=== PATIENT | female | born 1965 | race Hispanic/Latino ===

== ENCOUNTER 2022-08-02 20:45 | Inpatient (IN) | payer BC, OTHER ==
[~2022-08-02] VITALS: Ht 165.1 cm; Wt 89.4 kg
[2022-08-02] MEDS ORDERED: ONDANSETRON HCL INJ 2MG/ML 2ML 2 MG/ML VIAL IV STA ×2 (21:25→23:28)
[2022-08-02] MEDS ORDERED: METOPROLOL TARTRATE INJ 1 MG/ML VIAL IV ONE ×2 (21:30→23:15)
[2022-08-02 21:55] LABS: BASOPHILS % 0.3 % (0.0-1.0); CLARITY,URINE CLOUDY (CLEAR); COLOR,URINE YELLOW (YELLOW); EOSINOPHILS # (AUTO) 0.1 (0.0-0.4); EOSINOPHILS % 0.9 % (0.0-6.0); HEMATOCRIT 38.6 % (34.2-44.1); HEMOGLOBIN 12.3 g/dL (12.0-16.0); KETONES,URINE TRACE (NEGATIVE); LEUKOCYTE ESTERASE ,URINE SMALL (NEGATIVE); LYMPHOCYTES # (AUTO) 4.4 (1.0-3.2); LYMPHOCYTES % 31.8 % (18.0-39.1); MEAN CORPUSCULAR HEMOGLOBIN 25.9 pg (28-32); MEAN CORPUSCULAR HGB CONC 31.9 g/dL (31-35); MEAN CORPUSCULAR VOLUME 81.4 fL (81-99); MONOCYTES # (AUTO) 1.6 (0.2-0.8); MONOCYTES % 11.6 % (4.4-11.3); NEUTROPHILS # (AUTO) 7.6 (2.1-6.9); NITRITE,URINE NEGATIVE (NEGATIVE); PLATELET COUNT 340 x10e3/uL (140-360); PROTEIN,URINE DIPSTICK >=300 (NEGATIVE); RED BLOOD COUNT 4.74 x10e6/uL (3.6-5.1); RED CELL DISTRIBUTION WIDTH 13.7 % (11.7-14.4); URINE UROBILINOGEN 1 mg/dL (0.2 - 1)
[2022-08-02 21:58] LABS: AMPHETAMINES SCREEN,URINE NEGATIVE (NEGATIVE); BENZODIAZEPINES SCREEN,URINE NEGATIVE (NEGATIVE); PHENCYCLIDINE SCREEN,URINE NEGATIVE (NEGATIVE)
[2022-08-02 22:04] LABS: ALBUMIN 3.4 g/dL (3.5-5.0); ALBUMIN/GLOBULIN RATIO 0.8 (0.8-2.0); ANION GAP 21.1 mmol/L (8-16); CREATININE, SERUM 0.86 mg/dL (0.57-1.11); POTASSIUM 4.1 mmol/L (3.5-5.1)
[2022-08-02 22:06] LABS: BACTERIA,URINE MODERATE /HPF; EPITHELIAL CELLS,URINE FEW /LPF; WBC,URINE (MAN) 21-50 /HPF (0-5)
[2022-08-02 22:10] LABS: CREATINE KINASE MB 2.6 ng/mL (0-5.0)
[2022-08-02 22:26] LABS: FREE THYROXINE INDEX 8.5944035 (1.4-3.8)
[2022-08-02] MEDS ORDERED: SODIUM CHLORIDE 0.9% 1000ML 1,000 ML IV ONE (22:30)
[2022-08-02] MEDS ORDERED: Morphine 4mg INJECTION 4 MG/ML INJ IV ONE (23:30)
[2022-08-02] MEDS ORDERED: METOPROLOL TARTRATE INJ 1 MG/ML VIAL ONE (23:38)
[2022-08-03] VITALS (8 sets, daily range): BP systolic 101–128; BP diastolic 31–79
[2022-08-03] MEDS ORDERED: ACETAMINOPHEN 325 MG TAB PO PRN (00:15)
[2022-08-03] MEDS ORDERED: SODIUM CHLORIDE FLUSH 10 ML SYR INJ PRN (00:15)
[2022-08-03] MEDS ORDERED: DEXTROSE 50% SYRINGE 50 ML IV PRN (00:15)
[2022-08-03] MEDS ORDERED: METOPROLOL TARTRATE 50 MG TAB PO ONE (00:30)
[2022-08-03] MEDS ORDERED: METOPROLOL TARTRATE 50 MG TAB ONE (00:42)
[2022-08-03] MEDS ORDERED: ONDANSETRON HCL INJ 2MG/ML 2ML 2 MG/ML VIAL IV PRN (01:00)
[2022-08-03] MEDS ORDERED: MELATONIN 3 MG TAB PO PRN (01:15)
[2022-08-03] MEDS ORDERED: GUAIFENESIN/DEXTROMETHORPHAN LIQD 5 ML UDC PO PRN (01:15)
[2022-08-03] MEDS ORDERED: DOCUSATE SODIUM 100 MG CAP PO PRN (01:15)
[2022-08-03] MEDS ORDERED: MAGNESIUM/ALUMINUM/SIMETHICONE 30 ML UDC PO PRN (01:15)
[2022-08-03] MEDS ORDERED: Morphine 4mg INJECTION 4 MG/ML INJ IV PRN (02:30)
[2022-08-03] MEDS ORDERED: OXYBUTYNIN CHLO10 MG PO (04:39)
[2022-08-03] MEDS ORDERED: TRULICITY1.5 MG/0.5 (05:12)
[2022-08-03] MEDS ORDERED: AMBIEN10 MG PO (05:12)
[2022-08-03] MEDS ORDERED: CELECOXIB100 MG PO (05:12)
[2022-08-03] MEDS ORDERED: SPIRONOLACTONE25 MG PO (05:12)
[2022-08-03] MEDS ORDERED: METOPROLOL SUC100 MG PO (05:12)
[2022-08-03] MEDS ORDERED: HYDROXYCHLOROQ200 MG PO (05:12)
[2022-08-03] MEDS ORDERED: FLUTICASONE PRO16 GM HHN (05:12)
[2022-08-03] MEDS ORDERED: HYDROCODONE-IB1 EAC1 PO (05:12)
[2022-08-03] MEDS ORDERED: ROSUVASTATIN CA20 MG PO (05:12)
[2022-08-03] MEDS ORDERED: PANTOPRAZOLE SO40 MG PO (05:12)
[2022-08-03] MEDS ORDERED: CYCLOBENZAPRINE10 MG PO (05:12)
[2022-08-03] MEDS ORDERED: BENLYSTA400 MG SUBD (05:15)
[2022-08-03] MEDS: INSULIN REGULAR, HUMAN 100 UNIT/1 ML SQ SCH ×2 (07:30→11:30)
[2022-08-03] MEDS: METOPROLOL TARTRATE 25 MG TAB PO SCH ×2 (09:00→23:21)
[2022-08-03] MEDS: LACTATED RINGER'S 1,000 ML INJ SCH ×3 (09:00→23:21)
[2022-08-03 09:10] LABS: MAGNESIUM 1.2 MG/DL (1.3-2.1); PHOSPHORUS 4.1 MG/DL (2.3-4.7)
[2022-08-03 10:24] LABS: CREATINE KINASE MB 1.9 ng/mL (0-5.0)
[2022-08-03 11:48] LABS: ALBUMIN 2.9 g/dL (3.5-5.0); ALBUMIN/GLOBULIN RATIO 0.9 (0.8-2.0); CALCIUM 9.9 mg/dL (8.4-10.2); CREATININE, SERUM 0.77 mg/dL (0.57-1.11)
[2022-08-03] MEDS: HYDROCODONE/APAP 7.5MG-325MG 1 EA TAB PO PRN (13:32)
[2022-08-03] MEDS: INSULIN LISPRO 100 UNIT/1 ML 3ML VIAL SQ SCH ×2 (16:30→21:00)
[2022-08-03 16:38] LABS: CREATINE KINASE MB 1.8 ng/mL (0-5.0)
[2022-08-03] MEDS: CRESTOR 10MG PO SCH (23:19)
[2022-08-03] MEDS: ZOLPIDEM TARTRATE 10 MG TAB PO PRN (23:28)
[2022-08-04] VITALS (8 sets, daily range): BP systolic 102–139; BP diastolic 53–63
[2022-08-04 07:29] LABS: BASOPHILS % 0.5 % (0.0-1.0); EOSINOPHILS # (AUTO) 0.2 (0.0-0.4); EOSINOPHILS % 3.4 % (0.0-6.0); HEMATOCRIT 32.3 % (34.2-44.1); HEMOGLOBIN 9.4 g/dL (12.0-16.0); LYMPHOCYTES # (AUTO) 2.3 (1.0-3.2); MEAN CORPUSCULAR HEMOGLOBIN 26.4 pg (28-32); MEAN CORPUSCULAR HGB CONC 29.1 g/dL (31-35); MEAN CORPUSCULAR VOLUME 90.7 fL (81-99); MONOCYTES # (AUTO) 0.9 (0.2-0.8); MONOCYTES % 15.6 % (4.4-11.3); NEUTROPHILS # (AUTO) 2.3 (2.1-6.9); NEUTROPHILS % 40.1 % (38.7-80.0); PLATELET COUNT 196 x10e3/uL (140-360); RED BLOOD COUNT 3.56 x10e6/uL (3.6-5.1)
[2022-08-04] MEDS: INSULIN LISPRO 100 UNIT/1 ML 3ML VIAL SQ SCH ×4 (07:30→20:49)
[2022-08-04 08:09] LABS: ALBUMIN 2.5 g/dL (3.5-5.0); ALBUMIN/GLOBULIN RATIO 0.8 (0.8-2.0); ANION GAP 11.9 mmol/L (8-16); CALCIUM 9.8 mg/dL (8.4-10.2); CHOL/HDL RATIO 2.1 (3.0-3.6); CREATININE, SERUM 0.69 mg/dL (0.57-1.11); POTASSIUM 3.9 mmol/L (3.5-5.1)
[2022-08-04] MEDS ORDERED: METOPROLOL SUCCINATE 50 MG TAB XL PO SCH (09:00)
[2022-08-04] MEDS: CYCLOBENZAPRINE HCL 10 MG TAB PO SCH (09:41)
[2022-08-04] MEDS: METOPROLOL TARTRATE 25 MG TAB PO SCH ×2 (09:42→20:39)
[2022-08-04] MEDS: HYDROXYCHLOROQUINE SULFATE 200 MG TAB PO SCH (09:42)
[2022-08-04] MEDS: PANTOPRAZOLE SOD 40 MG TABEC PO SCH (09:42)
[2022-08-04] MEDS: LACTATED RINGER'S 1,000 ML INJ SCH ×2 (09:44→20:41)
[2022-08-04] MEDS: HYDROCODONE/APAP 7.5MG-325MG 1 EA TAB PO PRN ×2 (09:57→20:40)
[2022-08-04] MEDS: CRESTOR 10MG PO SCH (20:39)
[2022-08-04] MEDS: ZOLPIDEM TARTRATE 10 MG TAB PO PRN (20:39)
[2022-08-04] MEDS: METHIMAZOLE 5 MG TAB PO SCH (21:06)
[2022-08-05] VITALS (8 sets, daily range): BP systolic 117–138; BP diastolic 43–60
[2022-08-05] MEDS: HYDROCODONE/APAP 7.5MG-325MG 1 EA TAB PO PRN ×3 (05:18→21:26)
[2022-08-05] MEDS: LACTATED RINGER'S 1,000 ML INJ SCH ×3 (06:08→23:15)
[2022-08-05] MEDS: METHIMAZOLE 5 MG TAB PO SCH ×3 (06:08→21:02)
[2022-08-05] MEDS: INSULIN LISPRO 100 UNIT/1 ML 3ML VIAL SQ SCH ×4 (07:30→21:00)
[2022-08-05] MEDS: PANTOPRAZOLE SOD 40 MG TABEC PO SCH (08:21)
[2022-08-05] MEDS: CYCLOBENZAPRINE HCL 10 MG TAB PO SCH ×2 (08:22→21:04)
[2022-08-05] MEDS: HYDROXYCHLOROQUINE SULFATE 200 MG TAB PO SCH (08:22)
[2022-08-05] MEDS: METOPROLOL TARTRATE 25 MG TAB PO SCH ×2 (08:23→21:25)
[2022-08-05] MEDS ORDERED: ONDANSETRON HCL 4 MG ORAL DISINTEGRATING TAB PO PRN (14:00)
[2022-08-05] MEDS: CRESTOR 10MG PO SCH (21:02)
[2022-08-05] MEDS: ZOLPIDEM TARTRATE 10 MG TAB PO PRN (21:26)
[2022-08-06] VITALS (8 sets, daily range): BP systolic 100–155; BP diastolic 48–92
[2022-08-06] MEDS: METHIMAZOLE 5 MG TAB PO SCH ×3 (06:03→21:23)
[2022-08-06] MEDS: INSULIN LISPRO 100 UNIT/1 ML 3ML VIAL SQ SCH ×4 (07:30→21:00)
[2022-08-06] MEDS: HYDROXYCHLOROQUINE SULFATE 200 MG TAB PO SCH (08:24)
[2022-08-06] MEDS: PANTOPRAZOLE SOD 40 MG TABEC PO SCH (08:24)
[2022-08-06] MEDS: METOPROLOL TARTRATE 25 MG TAB PO SCH ×2 (08:26→21:30)
[2022-08-06 09:07] LABS: BASOPHILS % 0.2 % (0.0-1.0); EOSINOPHILS # (AUTO) 0.3 (0.0-0.4); EOSINOPHILS % 4.5 % (0.0-6.0); HEMOGLOBIN 9.4 g/dL (12.0-16.0); LYMPHOCYTES # (AUTO) 2.9 (1.0-3.2); LYMPHOCYTES % 48.3 % (18.0-39.1); MEAN CORPUSCULAR HEMOGLOBIN 25.8 pg (28-32); MEAN CORPUSCULAR HGB CONC 31.3 g/dL (31-35); MEAN CORPUSCULAR VOLUME 82.2 fL (81-99); MONOCYTES # (AUTO) 0.9 (0.2-0.8); MONOCYTES % 14.4 % (4.4-11.3); NEUTROPHILS # (AUTO) 1.9 (2.1-6.9); NEUTROPHILS % 32.4 % (38.7-80.0); PLATELET COUNT 185 x10e3/uL (140-360); RED BLOOD COUNT 3.65 x10e6/uL (3.6-5.1); RED CELL DISTRIBUTION WIDTH 13.2 % (11.7-14.4)
[2022-08-06] MEDS: HYDROCODONE/APAP 7.5MG-325MG 1 EA TAB PO PRN ×2 (09:11→18:40)
[2022-08-06 09:23] LABS: ANION GAP 11.2 mmol/L (8-16); CALCIUM 9.2 mg/dL (8.4-10.2); CREATININE, SERUM 0.65 mg/dL (0.57-1.11); POTASSIUM 3.2 mmol/L (3.5-5.1)
[2022-08-06] MEDS: LACTATED RINGER'S 1,000 ML INJ SCH ×2 (14:33→19:15)
[2022-08-06 15:00] LABS: MAGNESIUM 1.2 MG/DL (1.3-2.1); PHOSPHORUS 3.8 MG/DL (2.3-4.7)
[2022-08-06] MEDS ORDERED: MAGNESIUM SULFATE 2GM/50ML 50 ML IV ONE ×2 (16:30→18:30)
[2022-08-06] MEDS ORDERED: POTASSIUM CHLORIDE 20 MEQ TAB CR PO ONE (21:00)
[2022-08-06] MEDS: ZOLPIDEM TARTRATE 10 MG TAB PO PRN (21:23)
[2022-08-06] MEDS: CYCLOBENZAPRINE HCL 10 MG TAB PO SCH (21:24)
[2022-08-06] MEDS: CRESTOR 10MG PO SCH (21:24)
[2022-08-07] VITALS: BP 149/80
[2022-08-07 04:00] VITALS: BP 115/57
[2022-08-07] MEDS: METHIMAZOLE 5 MG TAB PO SCH (05:30)
[2022-08-07] MEDS: LACTATED RINGER'S 1,000 ML INJ SCH (05:30)
[2022-08-07 06:39] LABS: ANION GAP 10.9 mmol/L (8-16); CALCIUM 8.8 mg/dL (8.4-10.2); CREATININE, SERUM 0.65 mg/dL (0.57-1.11); MAGNESIUM 1.8 MG/DL (1.3-2.1); POTASSIUM 3.9 mmol/L (3.5-5.1)
[2022-08-07 06:40] LABS: BASOPHILS % 0.3 % (0.0-1.0); EOSINOPHILS # (AUTO) 0.3 (0.0-0.4); EOSINOPHILS % 4.8 % (0.0-6.0); HEMATOCRIT 28.7 % (34.2-44.1); HEMOGLOBIN 9.5 g/dL (12.0-16.0); LYMPHOCYTES # (AUTO) 2.4 (1.0-3.2); LYMPHOCYTES % 36.5 % (18.0-39.1); MEAN CORPUSCULAR HGB CONC 33.1 g/dL (31-35); MEAN CORPUSCULAR VOLUME 84.7 fL (81-99); MONOCYTES # (AUTO) 0.7 (0.2-0.8); MONOCYTES % 9.8 % (4.4-11.3); NEUTROPHILS # (AUTO) 3.2 (2.1-6.9); NEUTROPHILS % 48.3 % (38.7-80.0); PLATELET COUNT 182 x10e3/uL (140-360); RED BLOOD COUNT 3.39 x10e6/uL (3.6-5.1); RED CELL DISTRIBUTION WIDTH 13.7 % (11.7-14.4); RETICULOCYTE % 0.9 % (0.8-2.2)
[2022-08-07 06:43] LABS: FERRITIN 143.12 ng/mL (4.63-204.00)
[2022-08-07] MEDS ORDERED: ONDANSETRON ODT4 MG PO (07:14)
[2022-08-07] MEDS ORDERED: LOPRESSOR25 MG PO (07:14)
[2022-08-07] MEDS ORDERED: METHIMAZOLE5 MG PO (07:14)
[2022-08-07] MEDS: INSULIN LISPRO 100 UNIT/1 ML 3ML VIAL SQ SCH (07:30)
[2022-08-07] MEDS ORDERED: IRON325 M1 PO (08:09)
[2022-08-07] MEDS ORDERED: VITAMIN C500 MG PO (08:09)
[2022-08-07 08:23] VITALS: BP 119/90
[2022-08-07] MEDS ORDERED: SODIUM FERRIC GLUCONATE COMPLX 125 MG in SODIUM CHLORIDE 0.9% 100 ML IV SCH (09:00)
[2022-08-07 09:28] VITALS: BP 119/90
[2022-08-07] MEDS: HYDROXYCHLOROQUINE SULFATE 200 MG TAB PO SCH (10:01)
[2022-08-07] MEDS: PANTOPRAZOLE SOD 40 MG TABEC PO SCH (10:02)
[2022-08-07] MEDS: METOPROLOL TARTRATE 25 MG TAB PO SCH (10:02)
[2022-08-07 11:43] VITALS: BP 133/84
== END 2022-08-07 14:05 | disposition home or self-care (01) | DRG 644 ==
LOC: ER 20:55 → ERHOLD 08-03 00:09 → MED/SURG3 08-03 03:46
PROVIDERS: ADMIT Internal Medicine Critical Care Medicine; ATTEND Internal Medicine
DX: E05.91 Thyrotoxicosis, unspecified with thyrotoxic crisis or storm (principal); E87.20 Acidosis, unspecified; N39.0 Urinary tract infection, site not specified; J30.9 Allergic rhinitis, unspecified; G47.33 Obstructive sleep apnea (adult) (pediatric); E66.09 Other obesity due to excess calories; Z68.32 Body mass index [BMI] 32.0-32.9, adult; E83.52 Hypercalcemia; K21.9 Gastro-esophageal reflux disease without esophagitis; M32.9 Systemic lupus erythematosus, unspecified; E83.42 Hypomagnesemia; E11.69 Type 2 diabetes mellitus with other specified complication; E78.5 Hyperlipidemia, unspecified; E87.6 Hypokalemia; E66.01 Morbid (severe) obesity due to excess calories; K59.00 Constipation, unspecified; G47.00 Insomnia, unspecified; I11.0 Hypertensive heart disease with heart failure; D50.9 Iron deficiency anemia, unspecified; I50.9 Heart failure, unspecified; R63.4 Abnormal weight loss; G43.909 Migraine, unspecified, not intractable, without status migrainosus; M19.90 Unspecified osteoarthritis, unspecified site; Z20.822 Contact with and (suspected) exposure to COVID-19; Z79.899 Other long term (current) drug therapy; Z87.891 Personal history of nicotine dependence; Z79.4 Long term (current) use of insulin
CPT/HCPCS: 36415; 70450; 71045; 74176; 76536; 80048; 80053; 80061; 80307; 81001; 82270; 82550; 82553; 82607; 82728; 82746; 82948; 83036; 83540; 83605; 83735; 83880; 83970; 84100; 84436; 84439; 84443; 84466; 84479; 84481; 84484; 85025; 85045; 86376; 87040; 93005; 94799; 96361; 99284; J0696; J2270; J2405; J2916; J3475; J7030; J7050; J7121